=== PATIENT | female | born 1970 | race Caucasian/White ===

== ENCOUNTER 2018-01-08 11:13 | Inpatient (IN) | payer SELFPAY ==
[~2018-01-08] VITALS: Ht 165.1 cm; Wt 111.2 kg
[2018-01-08] MEDS ORDERED: SODIUM CHLORIDE 0.9% 1000ML 1,000 ML IV STA (11:28)
[2018-01-08] MEDS ORDERED: MORPHINE SULFATE 4 MG/ML SYR IV STA (11:28)
[2018-01-08] MEDS ORDERED: ONDANSETRON HCL 4 MG ORAL DISINTEGRATING TAB PO ONE (11:30)
[2018-01-08] MEDS ORDERED: HYDROCHLOROTHIA25 MG PO (11:31)
[2018-01-08] MEDS ORDERED: farxiga PO (11:31)
[2018-01-08] MEDS ORDERED: ATORVASTATIN CA20 MG PO (11:31)
[2018-01-08] MEDS ORDERED: LO LOESTRIN FE1 EACH PO (11:31)
[2018-01-08] MEDS ORDERED: LISINOPRIL10 MG PO (11:31)
[2018-01-08] MEDS ORDERED: METFORMIN HCL500 M2 PO (11:31)
[2018-01-08] MEDS ORDERED: VITAMIN D250000 UNIT PO (11:32)
[2018-01-08 11:53] LABS: BASOPHILS % 0.3 % (0.0-1.0); EOSINOPHILS % 0.3 % (0.0-6.0); HEMATOCRIT 36.7 % (34.2-44.1); HEMOGLOBIN 12.6 g/dL (12.0-16.0); LYMPHOCYTES # (AUTO) 3.3 (1.0-3.2); LYMPHOCYTES % 25.8 % (18.0-39.1); MEAN CORPUSCULAR HEMOGLOBIN 30.7 pg (28-32); MEAN CORPUSCULAR HGB CONC 34.3 g/dL (31-35); MEAN CORPUSCULAR VOLUME 89.5 fL (81-99); MONOCYTES # (AUTO) 0.7 (0.2-0.8); MONOCYTES % 5.5 % (4.4-11.3); NEUTROPHILS # (AUTO) 8.7 (2.1-6.9); NEUTROPHILS % 67.8 % (38.7-80.0); PLATELET COUNT 298 x10e3/uL (140-360); RED CELL DISTRIBUTION WIDTH 12.2 % (11.7-14.4)
[2018-01-08 12:01] LABS: BILIRUBIN,URINE 1+ (NEGATIVE); CLARITY,URINE TURBID (CLEAR); COLOR,URINE BROWN (YELLOW); KETONES,URINE NEGATIVE (NEGATIVE); LEUKOCYTE ESTERASE ,URINE TRACE (NEGATIVE); NITRITE,URINE POSITIVE (NEGATIVE); PROTEIN,URINE DIPSTICK 2+ (NEGATIVE); URINE UROBILINOGEN 0.2 mg/dL (0.2 - 1)
[2018-01-08 12:24] LABS: BACTERIA,URINE RARE /HPF; EPITHELIAL CELLS,URINE RARE /LPF; RBC,URINE 21-50 /HPF (0-5)
[2018-01-08 12:25] LABS: YEAST,URINE MODERATE
[2018-01-08 12:27] LABS: ALANINE AMINOTRANSFERASE 11 IU/L (0-55); ALBUMIN 3.4 g/dL (3.5-5.0); ALBUMIN/GLOBULIN RATIO 1.2 (0.8-2.0); ALKALINE PHOSPHATASE 52 IU/L (40-150); ANION GAP 11.7 mmol/L (8-16); BLOOD UREA NITROGEN 16 mg/dL (7-26); BUN/CREATININE RATIO 21 (6-25); CALCIUM 9.1 mg/dL (8.4-10.2); CARBON DIOXIDE 27 mmol/L (22-29); CHLORIDE 104 mmol/L (98-107); CREATININE, SERUM 0.78 mg/dL (0.57-1.11); EST GLOMERULAR FILTRATION RATE > 60 ML/MIN (60-); GLUCOSE 108 mg/dL (74-118); POTASSIUM 3.7 mmol/L (3.5-5.1); SODIUM 139 mmol/L (136-145)
[2018-01-08] MEDS ORDERED: CEFTRIAXONE SOD 1 GM VIAL IV SCH (13:00)
--- NOTE | 2018-01-08 13:31 | Diagnostic Imaging Report ---
PROCEDURE: CT ABDOMEN AND PELVIS WITHOUT CONTRAST TECHNIQUE: The abdomen and pelvis were scanned utilizing a multidetector helical scanner from the diaphragm to the lesser trochanter after the oral administration of water. No IV contrast was administered per protocol. Coronal and sagittal multiplanar reformations were obtained. COMPARISON: None. INDICATIONS: RIGHT LOW BACK PAIN. HEMATURIA. NAUSEA/VOMITING FINDINGS: ABSENCE OF INTRAVENOUS CONTRAST DECREASES SENSITIVITY FOR DETECTION OF FOCAL LESIONS AND VASCULAR PATHOLOGY. LOWER THORAX: Unremarkable. HEPATOBILIARY: No focal hepatic lesions. No biliary ductal dilatation. Gallbladder is unremarkable. SPLEEN: Mild splenomegaly, measuring 14.9 cm in AP diameter. PANCREAS: No focal masses or ductal dilatation. ADRENALS: No adrenal nodules. KIDNEYS/URETERS: No renal or ureteral calculi, hydronephrosis, or obstruction. Ill-defined 10.3 x 7.2 x 13.3 cm contour abnormality involving the lateral aspect of the mid and inferior kidney, with heterogeneous attenuation. No contour abnormalities in the left kidney. PELVIC ORGANS/BLADDER: Bladder is decompressed, but grossly unremarkable. Uterus is unremarkable. No adnexal masses. PERITONEUM / RETROPERITONEUM: No free air or fluid. LYMPH NODES: No lymphadenopathy. VESSELS: Unremarkable for noncontrast exam. GI TRACT: No bowel dilation or evidence of obstruction. Appendix is well identified and normal in caliber. BONES AND SOFT TISSUES: No aggressive lytic lesions. Fat-containing umbilical hernia. IMPRESSION: 1. Ill-defined contour abnormality with heterogeneous attenuation in the lateral aspect of the mid and inferior kidney, measuring 13.3 cm in greatest diameter, highly suspicious for solid renal mass, likely RCC. Recommend CT abdomen with renal mass protocol (excluding noncontrast phase). 2. No renal, ureteral, or bladder calculi. No hydronephrosis or obstruction. Humphrey Freeman M.D. Dictated by: Humphrey Freeman M.D. on 01/08/2018 at 13:33 Electronically approved by: Humphrey Freeman M.D. on 01/08/2018 at 13:33
[2018-01-08] MEDS ORDERED: MORPHINE SULFATE 2 MG/ML SYR ONE (13:42)
[2018-01-08] MEDS ORDERED: MORPHINE SULFATE 2 MG/ML SYR IV PRN (14:45)
[2018-01-08] MEDS ORDERED: ONDANSETRON HCL 4 MG ORAL DISINTEGRATING TAB PO PRN (14:45)
--- OUTSIDE RECORDS SUMMARY | 2018-01-08 14:57 | XMS REPORT ---
Author Author [facility] Address Unknown Phone Unavailable Care Team Providers Care High School Counselor Name Role Phone MAKENNA HAIRSTON Unavailable Unavailable Problems This patient has no known problems. Allergies, Adverse Reactions, Alerts This patient has no known allergies or adverse reactions. Medications This patient has no known medications. Results Test Description Test Time Test Comments Text Results Atomic Results Result Comments CT ABDOMEN/PELVIS WO [place] [address] Patient Name: BONNIE HOUSTON MR #: [id number] : 1970 Age/Sex: 47/F Req #: [id number] Adm Physician: Ordered by: YOBANI ALFONSO PROCUREMENT CONSULTANT Report #: [id number] Location: ER Room/Bed: Procedure: [id number] CT/CT ABDOMEN/PELVIS WO Exam Date: 01/08/18 Exam Time: 1200 REPORT STATUS: Signed PROCEDURE: CT ABDOMEN AND PELVIS WITHOUT CONTRAST TECHNIQUE: The abdomen and pelvis were scanned utilizing a multidetector helical scanner from the diaphragm to the lesser trochanter after the oral administration of water. No IV contrast was administered per protocol. Coronal and sagittal multiplanar reformations were obtained. COMPARISON: None. INDICATIONS: RIGHT LOW BACK PAIN. HEMATURIA. NAUSEA/VOMITING FINDINGS: ABSENCE OF INTRAVENOUS CONTRAST DECREASES SENSITIVITY FOR DETECTION OF FOCAL LESIONS AND VASCULAR PATHOLOGY. LOWER THORAX: Unremarkable. HEPATOBILIARY: No focal hepatic lesions. No biliary ductal dilatation. Gallbladder is unremarkable. SPLEEN: Mild splenomegaly, measuring 14.9 cm in AP diameter. PANCREAS: No focal masses or ductal dilatation. ADRENALS: No adrenal nodules. KIDNEYS /URETERS: No renal or ureteral calculi, hydronephrosis, or obstruction. Ill -defined 10.3 x 7.2 x 13.3 cm contour abnormality involving the lateral aspect of the mid and inferior kidney, with heterogeneous attenuation. No contour abnormalities in the left kidney. PELVIC ORGANS/BLADDER: Bladder is decompressed, but grossly unremarkable. Uterus is unremarkable. No adnexal masses. PERITONEUM / RETROPERITONEUM: No free air or fluid. LYMPH NODES : No lymphadenopathy. VESSELS: Unremarkable for noncontrast exam. GI TRACT: No bowel dilation or evidence of obstruction. Appendix is well identified and normal in caliber. BONES AND SOFT TISSUES: No aggressive lytic lesions. Fat-containing umbilical hernia. IMPRESSION: 1. Ill-defined contour abnormality with heterogeneous attenuation in the lateral aspect of the mid and inferior kidney, measuring 13.3 cm in greatest diameter, highly suspicious for solid renal mass, likely RCC. Recommend CT abdomen with renal mass protocol (excluding noncontrast phase). 2. No renal , ureteral, or bladder calculi. No hydronephrosis or obstruction. Ashley Freeman M.D. Dictated by: Ashley Freeman M.D. on 01/08/2018 at 13:33 Electronically approved by: Ashley Freeman M.D. on 2017 at 13:33 Dictated By: ASHLEY FREEMAN MD 1333 Transcribed By: HUNTER on 1333 COPY TO: YOBANI ALFONSO NP
--- NOTE | 2018-01-08 15:11 | Diagnostic Imaging Report ---
PROCEDURE: CT ABDOMEN AND PELVIS WITH CONTRAST TECHNIQUE: The abdomen and pelvis were scanned utilizing a multidetector helical scanner from the diaphragm to the lesser trochanter after the IV administration of 100 cc of Isovue 370 and the oral administration of water. Coronal and sagittal multiplanar reformations were obtained. COMPARISON: Patients [facility], CT, CT ABDOMEN/PELVIS , 01/08/2018, 12:14. INDICATIONS: RIGHT RENAL MASS FINDINGS: LOWER THORAX: Lung bases are clear. No pulmonary nodules. HEPATOBILIARY: No focal hepatic lesions. No biliary ductal dilatation. The gallbladder is unremarkable. SPLEEN: Mild splenomegaly measuring 14.9 cm in AP diameter.. PANCREAS: No focal masses or ductal dilatation. ADRENALS: No adrenal nodules. KIDNEYS/URETERS: Previously described right renal contour abnormality corresponds to an 11.4 x 9.3 x 12.7 cm heterogeneously enhancing solid right renal mass with central nonenhancing areas of necrosis, arising from the lateral mid and inferior right kidney. The superior aspect of the lesion abuts the posterior right hepatic lobe (series 2, image 129), without definite evidence of invasion. No other renal masses. No hydronephrosis or obstruction. Multiple somewhat linear filling defects are noted in the right renal pelvis extending to the UPJ (series 5, images 59-70 and coronal delayed images 73-79), which show no enhancement. No filling defects are noted in the left renal collecting system or ureter. PELVIC ORGANS/BLADDER: Bladder is unremarkable. PERITONEUM / RETROPERITONEUM: No free air or fluid. LYMPH NODES: No lymphadenopathy. VESSELS: Celiac trunk, superior and inferior mesenteric, and bilateral renal arteries are patent. Portal, superior mesenteric, and splenic arteries are patent. IVC and renal veins are patent, without filling defects. GI TRACT: No bowel dilation or evidence of obstruction. BONES AND SOFT TISSUES: No aggressive lytic lesions. Fat-containing umbilical hernia. IMPRESSION: 1. Heterogeneously enhancing solid renal mass measuring 12.7 cm in greatest diameter corresponding to the contour abnormality seen on prior CT, consistent with renal cell carcinoma (likely clear cell subtype). No definite evidence of extension outside Gerota's fascia, vascular invasion, adenopathy, or distant metastases in the lung bases, abdomen or pelvis. 2. Multiple somewhat linear filling defects in the right renal pelvis extending to the UPJ likely represent blood clots. No enhancement to suggest tumor extension. Humphrey Freeman M.D. Dictated by: Humphrey Freeman M.D. on 01/08/2018 at 15:14 Electronically approved by: Humphrey Freeman M.D. on 01/08/2018 at 15:14
[2018-01-08] MEDS ORDERED: IOPAMIDOL 370 MG/ML 200 ML INFUS..BTL INJ ONE (16:01)
[2018-01-08] MEDS ORDERED: SODIUM CHLORIDE 0.9% 50ML 50 ML ONE (16:01)
[2018-01-08] MEDS: SODIUM CHLORIDE 0.9% 1000ML 1,000 ML IV SCH (16:15)
[2018-01-08] MEDS ORDERED: DEXTROSE 50% SYRINGE 50 ML IV PRN (17:00)
[2018-01-08] MEDS ORDERED: ACETAMINOPHEN 325 MG TAB PO PRN (17:00)
[2018-01-08] MEDS ORDERED: ACETAMINOPHEN/CODEINE 300MG - 30MG TAB PO PRN (17:00)
[2018-01-08] MEDS ORDERED: ONDANSETRON HCL INJ 2 MG/ML VIAL IV PRN (17:00)
[2018-01-08] MEDS ORDERED: HYDRALAZINE HCL 20 MG/ML VIAL IV PRN (17:00)
[2018-01-08] MEDS ORDERED: HYDROMORPHONE 1MG/1ML INJ IV STA (17:23)
[2018-01-08] MEDS ORDERED: HYDROMORPHONE 2MG/ML INJ IV NR (17:30)
[2018-01-08] MEDS: PHENAZOPYRIDINE HCL 100 MG TAB PO SCH (17:52)
[2018-01-08] MEDS: FLUCONAZOLE 200 MG/100 ML 100 ML IV SCH (18:20)
[2018-01-08 20:05] VITALS: BP 142/68
[2018-01-08] MEDS: HYDROMORPHONE 2MG/ML INJ IV PRN (21:29)
[2018-01-08] MEDS: ATORVASTATIN 20 MG TAB PO SCH (21:44)
[2018-01-08] MEDS: INSULIN LISPRO 100 UNIT/1 ML 3ML VIAL SQ SCH (21:45)
[2018-01-09] VITALS (10 sets, daily range): BP systolic 93–142; BP diastolic 53–68
[2018-01-09] MEDS: HYDROMORPHONE 2MG/ML INJ IV PRN ×4 (01:29→20:51)
[2018-01-09] MEDS: SODIUM CHLORIDE 0.9% 1000ML 1,000 ML IV SCH ×2 (03:53→21:21)
[2018-01-09 06:43] LABS: BASOPHILS % 0.2 % (0.0-1.0); EOSINOPHILS # (AUTO) 0.1 (0.0-0.4); EOSINOPHILS % 0.4 % (0.0-6.0); HEMATOCRIT 36.3 % (34.2-44.1); HEMOGLOBIN 12.1 g/dL (12.0-16.0); LYMPHOCYTES # (AUTO) 1.9 (1.0-3.2); LYMPHOCYTES % 15.5 % (18.0-39.1); MEAN CORPUSCULAR HGB CONC 33.3 g/dL (31-35); MEAN CORPUSCULAR VOLUME 90.1 fL (81-99); MONOCYTES # (AUTO) 0.9 (0.2-0.8); MONOCYTES % 7.4 % (4.4-11.3); NEUTROPHILS # (AUTO) 9.4 (2.1-6.9); NEUTROPHILS % 76.1 % (38.7-80.0); PLATELET COUNT 260 x10e3/uL (140-360); RED BLOOD COUNT 4.03 x10e6/uL (3.6-5.1); RED CELL DISTRIBUTION WIDTH 12.3 % (11.7-14.4)
[2018-01-09 07:09] LABS: B-TYPE NATRIURETIC PEPTIDE2 278.9 pg/mL (0-100)
[2018-01-09 07:16] LABS: CHOL/HDL RATIO 4.3 (3.0-3.6); MAGNESIUM 1.7 MG/DL (1.3-2.1)
[2018-01-09 07:31] LABS: ALANINE AMINOTRANSFERASE 10 IU/L (0-55); ALBUMIN 3.2 g/dL (3.5-5.0); ALBUMIN/GLOBULIN RATIO 1.2 (0.8-2.0); ALKALINE PHOSPHATASE 49 IU/L (40-150); ANION GAP 11.4 mmol/L (8-16); BLOOD UREA NITROGEN 11 mg/dL (7-26); BUN/CREATININE RATIO 12 (6-25); CALCIUM 8.7 mg/dL (8.4-10.2); CARBON DIOXIDE 26 mmol/L (22-29); CHLORIDE 102 mmol/L (98-107); CREATININE, SERUM 0.94 mg/dL (0.57-1.11); EST GLOMERULAR FILTRATION RATE > 60 ML/MIN (60-); GLUCOSE 125 mg/dL (74-118); POTASSIUM 4.4 mmol/L (3.5-5.1); SODIUM 135 mmol/L (136-145)
[2018-01-09 07:40] LABS: FREE T4 (FREE THYROXINE) 0.85 ng/dL (0.9-1.8); THYROID STIMULATING HORMONE 6.116 uIU/mL (0.350-4.940)
[2018-01-09] MEDS ORDERED: HYDROCODONE/APAP 5MG-325MG TAB PO PRN (08:30)
[2018-01-09] MEDS: FAMOTIDINE 20 MG TAB PO SCH ×2 (08:59→17:13)
[2018-01-09] MEDS: LEVOTHYROXINE SODIUM 25 MCG TABLET PO SCH (08:59)
[2018-01-09] MEDS: LISINOPRIL 10 MG TAB PO SCH (08:59)
[2018-01-09] MEDS: HYDROCHLOROTHIAZIDE 25 MG TAB PO SCH (08:59)
[2018-01-09] MEDS: PHENAZOPYRIDINE HCL 100 MG TAB PO SCH ×3 (08:59→17:14)
[2018-01-09] MEDS: INSULIN LISPRO 100 UNIT/1 ML 3ML VIAL SQ SCH ×4 (09:00→20:51)
[2018-01-09] MEDS: CEFTRIAXONE SOD 1 GM VIAL IV SCH (10:34)
[2018-01-09] MEDS: FLUCONAZOLE 200 MG/100 ML 100 ML IV SCH (17:13)
--- NOTE | 2018-01-09 17:55 | Cardiology Report ---
DATE OF STUDY: January 09, 2018 ECHOCARDIOGRAM M-MODE: Normal chamber sizes. Left ventricular hypertrophy. Normal contractility. Normal mitral aortic valves. No pericardial effusion. SECTOR SCAN: Normal chamber sizes. Left ventricular hypertrophy. Normal contractility. Normal mitral, aortic and tricuspid valves. No pericardial effusion. CARDIAC DOPPLER STUDY WITH COLOR: Trace mitral tricuspid pulmonic regurgitation. CONCLUSIONS: 1. Mild left ventricular hypertrophy with ejection fraction of approximately 65%. 2. Trace mitral tricuspid and pulmonic regurgitation. 3. No evidence ASD or VSD. 4. No evidence intracardiac thrombi or masses. Job#: [id number] cc:BRANDEN CARRILLO MD
[2018-01-09] MEDS: ATORVASTATIN 20 MG TAB PO SCH (20:51)
[2018-01-10] VITALS: BP 111/60
[2018-01-10 04:00] VITALS: BP 116/65
[2018-01-10] MEDS: LEVOTHYROXINE SODIUM 25 MCG TABLET PO SCH (05:42)
[2018-01-10 06:37] LABS: HEMATOCRIT 36.5 % (34.2-44.1); HEMOGLOBIN 12.5 g/dL (12.0-16.0); MEAN CORPUSCULAR HEMOGLOBIN 30.6 pg (28-32); MEAN CORPUSCULAR HGB CONC 34.2 g/dL (31-35); MEAN CORPUSCULAR VOLUME 89.2 fL (81-99); RED BLOOD COUNT 4.09 x10e6/uL (3.6-5.1)
[2018-01-10 06:38] LABS: BASOPHILS % 0.2 % (0.0-1.0); EOSINOPHILS % 1.6 % (0.0-6.0); LYMPHOCYTES # (AUTO) 3.3 (1.0-3.2); MONOCYTES # (AUTO) 0.6 (0.2-0.8); MONOCYTES % 6.7 % (4.4-11.3); NEUTROPHILS # (AUTO) 4.3 (2.1-6.9); NEUTROPHILS % 51.1 % (38.7-80.0); PLATELET COUNT 276 x10e3/uL (140-360); RED CELL DISTRIBUTION WIDTH 12.4 % (11.7-14.4)
[2018-01-10 06:39] LABS: EOSINOPHILS # (AUTO) 0.1 (0.0-0.4)
[2018-01-10 06:46] LABS: ANION GAP 12.1 mmol/L (8-16); BLOOD UREA NITROGEN 9 mg/dL (7-26); BUN/CREATININE RATIO 12 (6-25); CALCIUM 8.7 mg/dL (8.4-10.2); CARBON DIOXIDE 25 mmol/L (22-29); CHLORIDE 104 mmol/L (98-107); CREATININE, SERUM 0.73 mg/dL (0.57-1.11); EST GLOMERULAR FILTRATION RATE > 60 ML/MIN (60-); GLUCOSE 108 mg/dL (74-118); MAGNESIUM 1.9 MG/DL (1.3-2.1); POTASSIUM 3.1 mmol/L (3.5-5.1); SODIUM 138 mmol/L (136-145)
[2018-01-10 07:15] VITALS: BP 101/51
[2018-01-10] MEDS: INSULIN LISPRO 100 UNIT/1 ML 3ML VIAL SQ SCH (07:30)
[2018-01-10] MEDS ORDERED: POTASSIUM CHLORIDE 20 MEQ TAB CR PO STA (07:48)
[2018-01-10] MEDS ORDERED: CEFTIN PO (08:02)
[2018-01-10] MEDS ORDERED: LEVOTHYROXINE25 MCG PO (08:02)
[2018-01-10 08:03] VITALS: BP 101/51
[2018-01-10] MEDS: FAMOTIDINE 20 MG TAB PO SCH (08:48)
[2018-01-10] MEDS: HYDROCHLOROTHIAZIDE 25 MG TAB PO SCH (08:49)
[2018-01-10] MEDS: PHENAZOPYRIDINE HCL 100 MG TAB PO SCH (08:49)
[2018-01-10] MEDS: CEFTRIAXONE SOD 1 GM VIAL IV SCH (08:49)
[2018-01-10] MEDS: LISINOPRIL 10 MG TAB PO SCH (08:49)
--- NOTE | 2018-01-10 09:55 | Consultation ---
DATE OF CONSULTATION: January 10, 2018 ATTENDING DOCTOR: Dr. Tellez Thank you, Dr. Tellez for this consultation. HISTORY: She is very pleasant 47-year-old female with past medical history of hypertension, hyperlipidemia, and diabetes, currently in hospital with worsening right-sided flank pain. She had intermittent hematuria. She came to the hospital for further management. Her workup shows heterogeneous enhancing solid renal mass 12.7 cm in greater diameter. Likely renal cell carcinoma. Patient currently on medication, clinical condition is improving. PAST MEDICAL HISTORY: Hypertension, hyperlipidemia, diabetes. ALLERGIES: NKDA. MEDICATIONS: List reviewed. SOCIAL HISTORY: No current smoking, alcohol, or drugs. REVIEW OF SYSTEMS: Twelve-point review as per HPI. PHYSICAL EXAMINATION: GENERAL: Alert, awake, communicative. HEENT: Normocephalic, atraumatic. Sclerae pink. Conjunctivae clear. NECK: Supple. CHEST: Clear to auscultation. CARDIOVASCULAR: Regular rate and rhythm. ABDOMEN: Tender in the right upper flank area. EXTREMITIES: No clubbing, cyanosis, edema. GENERATION ENGINEER: Intact. LABS AND IMAGING: Reviewed. ASSESSMENT AND PLAN: Patient with history of multiple medical conditions. I am currently following for: Heterogeneous enhancing solid renal right-sided mass. Patient will need urologist. Clinical condition is stable. RECOMMENDATION: Outpatient management for further care. Patient will need nephrectomy, also CT chest or PET scan for staging. Continue pain medication. Will follow patient closely. Thank you. Job#: [id number]
[2018-01-10 12:04] VITALS: BP 119/68
--- NOTE | 2018-01-10 15:47 | Discharge Summary ---
ADMISSION DIAGNOSES 1. Right renal mass. 2. Urinary tract infection with candiduria. 3. Hyponatremia. 4. Hypothyroidism. 5. Type 2 diabetes. 6. Hypertension. DISCHARGE DIAGNOSES 1. Right renal mass. 2. Urinary tract infection with candiduria. 3. Hyponatremia. 4. Hypothyroidism. 5. Type 2 diabetes. 6. Hypertension. HISTORY: Patient has a history of hyperlipidemia, hypertension, type 2 diabetes, and a surgical history of right shoulder surgery. HOSPITAL COURSE: A 47-year-old complains of right lower pain described as sharp and constant with associated nausea and emesis that began two nights ago. Later in the first night the patient noticed urinary retention. She took [facility] prescribed for her recent surgery and went to sleep. When she woke up the next morning, the pain continued but she was able to pee and noticed hematuria. Patient denies fever and dysuria. Upon admission patient had CT of the abdomen which showed a solid renal mass measuring 12.7 cm in greatest diameter corresponding to a contour abnormality seen on prior CT, consistent with renal cell carcinoma. No definite evidence of extension. Multiple somewhat linear filling defects in the right renal pelvis extending to the UPJ likely represent blood clots. No enhancement to suggest tumor extension. Hematology was consulted. Patient was started on Rocephin and fluconazole for the urine culture with a UA which showed bacteria and yeast. The urine culture was contaminated. Patient continued on Ceftin at discharge because Rocephin brought down the patient's white count and she remains afebrile. Patient's TSH was elevated and T4 was decreased. She was started on levothyroxine 25 mcg. She was told to follow up with her primary care as to whether that is a sufficient dose for her. She was continued on home meds for hypertension, type 2 diabetes and hyperlipidemia. After Hematology saw the patient, he said that she needs to be discharged and [facility] because that mass needs to be taken out and she needs to be somewhere that can handle such an intricate surgery. Patient and daughter understand the discharge plan and agree. Dictated by: Kallie Sands NP BRANDEN CARRILLO MD Job#: [id number] EV
== END 2018-01-10 11:22 | disposition home or self-care (01) | DRG 687 ==
LOC: ER 11:13 → ERHOLD 14:52 → MED/SURG 19:48
PROVIDERS: ADMIT Internal Medicine; ATTEND Internal Medicine
DX: C64.9 Malignant neoplasm of unspecified kidney, except renal pelvis (principal); B37.49 Other urogenital candidiasis; I10 Essential (primary) hypertension; E11.9 Type 2 diabetes mellitus without complications; E78.5 Hyperlipidemia, unspecified; E87.6 Hypokalemia; E03.9 Hypothyroidism, unspecified; Z79.52 Long term (current) use of systemic steroids; Z79.4 Long term (current) use of insulin
CPT/HCPCS: 36415; 74176; 74177; 80048; 80053; 80061; 81001; 81025; 82948; 83036; 83735; 83880; 84439; 84443; 85025; 87086; 93306; 99284; J0696; J1450; J2270; J2405; J7030; Q9967

== ENCOUNTER 2018-08-11 08:39 | Emergency (ER) | payer BC ==
[~2018-08-11] VITALS: Ht 165.1 cm; Wt 111.1 kg
[~2018-08-11 08:39] MED LIST: ATORVASTATIN CA20 MG PO; CEFTIN PO; HYDROCHLOROTHIA25 MG PO; LEVOTHYROXINE25 MCG PO; LISINOPRIL10 MG PO; LO LOESTRIN FE1 EACH PO; METFORMIN HCL500 M2 PO; VITAMIN D250000 UNIT PO; farxiga PO
--- OUTSIDE RECORDS SUMMARY | 2018-08-11 08:42 | XMS REPORT | Clinical Summary ---
Author Author [facility] Address Unknown Phone Unavailable Care Team Providers Care Foxing Closer Name Role Phone PCP Unavailable Allergies Not on File Medications Not on file Active Problems Not on file Encounters Care Team Description Date Type Specialty 05/09/2018 Clinical Corporate Wellness Support after 08/10/2017 Immunizations Name Dates Previously Given Next Due FLUCELVAX QUAD PF (0.5mL 05/09/2018 syringe) Social History Date Tobacco Use Types Packs/Day Years Used Never Assessed Sex Assigned at Date Recorded Not on file Industry Job Start Date Occupation Not on file Not on file Not on file Travel End Travel History Travel Start No recent travel history available. Last Filed Vital Signs Not on file Plan of Treatment Health Maintenance Due Date Last Done Comments CERVICAL CANCER SCREENING 1989 INFLUENZA VACCINE Completed 05/09/2018 Results Not on fileafter 08/10/2017 Insurance Payer Benefit Subscriber ID Type Phone Address Plan / Group BCBS BCBS xxxxxxxxxxxx PPO CHOICE PPO/JANELLE [employer] PPO Advance Directives Patient has advance care planning documents on file. For more information, radha stevenson contact: Jose Petty [address] [place] [address]
--- OUTSIDE RECORDS SUMMARY | 2018-08-11 08:42 | XMS REPORT | Clinical Summary ---
Author Author SHASHI Anapsis DropThought [facility] HospitalEgnyte Warner RobinsSnowball FinanceCascade Valley Hospital Address Unknown Phone Unavailable Care Team Providers Care Waste Machine Offbearer Name Role Phone [facility] PCP Allergies No Known Allergies Medications End Date Status Medication Sig Dispensed Refills Start Date Active atorvastatin (LIPITOR) 20 Take 20 mg by 0 MG tablet mouth daily. Active dapagliflozin (FARXIGA) 5 Take 5 mg by 0 mg tablet mouth daily. Active hydroCHLOROthiazide Take 12.5 mg 0 (MICROZIDE) 12.5 mg by mouth capsule daily. Active lisinopril Take 10 mg by 0 (PRINIVIL,ZESTRIL) 10 MG mouth daily. tablet Active metFORMIN (GLUCOPHAGE) Take 1,000 mg 0 1000 MG tablet by mouth 2 (two) times daily with breakfast and dinner. Active NORETHINDRONE-ETHINYL Take 1 tablet 0 ESTRAD (NORETHIN-ETH by mouth. ESTRAD BIPHASIC ORAL) Active levothyroxine (SYNTHROID, Take 25 mcg 0 LEVOTHROID) 25 MCG tablet by mouth Every morning on an empty stomach. Active cefUROXime (CEFTIN) 500 Take 500 mg 0 MG tablet by mouth 2 (two) times daily. 01/26/2018 acetaminophen-codeine Take 1 tablet 30 tablet 0 (TYLENOL-CODEINE #3) by mouth 8 300-30 mg per tablet every 4 (four) hours as needed for up to 10 days. Max Daily Amount: 6 tablets 01/26/2018 docusate sodium (COLACE) Take 1 20 capsule 0 100 MG capsule capsule (100 8 mg total) by mouth 2 (two) times daily for 10 days. Active Problems Problem Noted Date Renal mass 01/15/2018 Right flank pain 01/10/2018 Encounters Care Team Description Date Type Specialty Katcher, Gaby Kathia, MD 01/14/2018 Anesthesia Event Yoseph Johnston MD ROBOTIC LAPAROSCOPY,NEPHRECTOMY 01/14/2018 Surgery 01/12/2018 Orders Only General Internal Medicine Nelson Smith MD Brann, MD Josh Gutierrez, Destiny Bae MD Right flank pain (Primary Dx); Right renal mass; Essential hypertension; Diabetes mellitus type 2, noninsulin dependent (HCC); Other specified hypothyroidism; Renal mass 01/10/2018 [facility] General Internal Medicine - Encounter 01/17/2018 after 08/10/2017 Family History Medical History Relation Name Comments Heart disease Father hardening of the artery disease Cancer Maternal Aunt mesothelioma Cancer Maternal Colon Grandmother Heart disease Paternal Heart attack Grandfather Heart disease Paternal heart attack Uncle Heart disease Paternal heart attack Uncle Relation Name Status Comments Father Maternal Aunt Maternal Grandmother Paternal Grandfather Paternal Uncle Paternal Uncle Social History Date Tobacco Use Types Packs/Day Years Used Never Smoker Smokeless Tobacco: Never Used Alcohol Use Drinks/Week oz/Week Comments Yes 1 Shots of 0.6 OCCASSONIALLY liquor Sex Assigned at Date Recorded Not on file Industry Job Start Date Occupation Not on file Not on file Not on file Travel End Travel History Travel Start No recent travel history available. Last Filed Vital Signs Time Taken Vital Sign Reading 01/17/2018 7:24 AM CDT Blood Pressure 117/68 01/17/2018 7:24 AM CDT Pulse 85 01/17/2018 7:24 AM CDT Temperature 36.5 C (97.7 F) 01/17/2018 7:24 AM CDT Respiratory Rate 18 01/17/2018 7:24 AM CDT Oxygen Saturation 96% - Inhaled Oxygen - Concentration 01/14/2018 9:45 PM CDT Weight 109.3 kg (241 lb) 01/14/2018 9:45 PM CDT Height 165.1 cm (5' 5") 01/14/2018 9:45 PM CDT Body Mass Index 40.1 Plan of Treatment Not on file Procedures Comments Procedure Name Priority Date/Time Associated Diagnosis POCT-GLUCOSE METER Routine 01/17/2018 9:22 AM CDT HEMOGLOBIN AND HEMATOCRIT Routine 01/17/2018 5:35 AM CDT BASIC METABOLIC PANEL (7) Routine 01/17/2018 5:35 AM CDT POCT-GLUCOSE METER Routine 01/16/2018 9:54 PM CDT POCT-GLUCOSE METER Routine 01/16/2018 12:52 PM CDT POCT-GLUCOSE METER Routine 01/16/2018 8:14 AM CDT HEMOGLOBIN AND HEMATOCRIT Routine 01/16/2018 4:40 AM CDT BASIC METABOLIC PANEL (7) Routine 01/16/2018 4:40 AM CDT POCT-GLUCOSE METER Routine 01/15/2018 9:05 PM CDT POCT-GLUCOSE METER Routine 01/15/2018 5:15 PM CDT POCT-GLUCOSE METER Routine 01/15/2018 12:20 PM CDT POCT-GLUCOSE METER Routine 01/15/2018 7:52 AM CDT HEMOGLOBIN AND HEMATOCRIT Routine 01/15/2018 4:21 AM CDT BASIC METABOLIC PANEL (7) Routine 01/15/2018 4:21 AM CDT POCT-GLUCOSE METER Routine 01/14/2018 9:49 PM CDT HEMOGLOBIN AND HEMATOCRIT Routine 01/14/2018 7:39 PM CDT BASIC METABOLIC PANEL (7) Routine 01/14/2018 7:39 PM CDT TISSUE EXAM AP Routine 01/14/2018 4:46 PM CDT ECHOCARDIOGRAM REPORT - 01/14/2018 SCAN 1:20 PM CDT POCT , URINE Routine 01/14/2018 1:20 PM CDT PROCEDURE W/ DAVINCI 01/14/2018 Renal mass, right 12:30 PM CDT Special Needs (DAVINCI XI NOT REQUESTED) ROBOTIC 01/14/2018 Renal mass, right LAPAROSCOPY,NEPHRECTOMY 12:30 PM CDT Special Needs (DAVINCI XI NOT REQUESTED) 2D ECHO W/ DOPPLER STAT 01/14/2018 (CW/PW/COLOR) 11:06 AM CDT POCT-GLUCOSE METER Routine 01/14/2018 7:36 AM CDT POCT-GLUCOSE METER Routine 01/13/2018 10:22 PM CDT POCT-GLUCOSE METER Routine 01/13/2018 5:20 PM CDT POCT-GLUCOSE METER Routine 01/13/2018 11:01 AM CDT POCT-GLUCOSE METER Routine 01/13/2018 7:18 AM CDT CBC W/PLT COUNT & AUTO Routine 01/13/2018 DIFFERENTIAL 3:29 AM CDT CBC W/PLT COUNT & AUTO Routine 01/13/2018 DIFFERENTIAL 3:29 AM CDT BASIC METABOLIC PANEL (7) Routine 01/13/2018 3:29 AM CDT POCT-GLUCOSE METER Routine 01/12/2018 8:49 PM CDT TRANSFUSION SERVICE 01/12/2018 REPORT - SCAN 5:50 PM CDT POCT-GLUCOSE METER Routine 01/12/2018 3:52 PM CDT POCT-GLUCOSE METER Routine 01/12/2018 10:[address] CHEST WITH IV CONTRAST Routine 01/12/2018 10:55 AM CDT XR CHEST 2 VIEWS Routine 01/12/2018 8:07 AM CDT POCT-GLUCOSE METER Routine 01/12/2018 7:39 AM CDT ECG 12-LEAD Routine 01/12/2018 6:27 AM CDT ECG 12-LEAD Routine 01/12/2018 6:27 AM CDT Procedure Note - Interface, External Ris In - 01/12/2018 9:33 PM CDT Ventricula r Rate 76 BPM Atrial Rate 76 BPM P-R Interval 152 ms QRS Duration 86 ms Q-T Interval 390 ms QTC Calculatio n(Bazett) 438 ms P [place] 28 degrees R [place] 31 degrees T [place] 34 degrees Normal sinus rhythm Normal ECG When compared with ECG of 18:09, No significan t change was found CBC W/PLT COUNT & AUTO Routine 01/12/2018 DIFFERENTIAL 5:43 AM CDT PROTHROMBIN TIME/INR Routine 01/12/2018 5:43 AM CDT HEPATIC FUNCTION PANEL Routine 01/12/2018 5:43 AM CDT TSH/FREE T4 IF INDICATED Routine 01/12/2018 5:43 AM CDT LIPID PANEL Routine 01/12/2018 5:43 AM CDT HEMOGLOBIN A1C Routine 01/12/2018 5:43 AM CDT CBC W/PLT COUNT & AUTO Routine 01/12/2018 DIFFERENTIAL 5:43 AM CDT BASIC METABOLIC PANEL (7) Routine 01/12/2018 5:43 AM CDT POCT-GLUCOSE METER Routine 01/11/2018 10:01 PM CDT PREPARE LEUKO-REDUCED RBC Routine 01/11/2018 7:06 PM CDT ECG 12-LEAD Routine 01/11/2018 6:09 PM CDT URINE CULTURE Routine 01/11/2018 6:05 PM CDT POCT-GLUCOSE METER Routine 01/11/2018 5:57 PM CDT TYPE AND SCREEN, Routine 01/11/2018 AUTOMATED 5:51 PM CDT PROTHROMBIN TIME/INR Routine 01/11/2018 5:51 PM CDT APTT Routine 01/11/2018 5:51 PM CDT POCT-GLUCOSE METER Routine 01/11/2018 11:09 AM CDT CBC W/PLT COUNT & AUTO Routine 01/11/2018 DIFFERENTIAL 4:51 AM CDT CBC W/PLT COUNT & AUTO Routine 01/11/2018 DIFFERENTIAL 4:51 AM CDT BASIC METABOLIC PANEL (7) Routine 01/11/2018 4:51 AM CDT MR ABDOMEN WITH/WITHOUT STAT 01/11/2018 IV CONTRAST 12:21 AM CDT URINALYSIS W/ MICROSCOPIC Routine 01/10/2018 10:20 PM CDT CBC W/PLT COUNT & AUTO STAT 01/10/2018 DIFFERENTIAL 4:43 PM CDT BASIC METABOLIC PANEL (7) STAT 01/10/2018 4:43 PM CDT CBC W/PLT COUNT & AUTO STAT 01/10/2018 DIFFERENTIAL 4:43 PM CDT after 08/10/2017 Results * POC-Glucose meter (01/17/2018 9:22 AM CDT) Only the most recent of 21 results within the time period is included. POC-Glucose Meter 127 (H)Comment: TESTED AT 70 - 110 mg/dL [facility] [address] [facility] [id number] Specimen Blood Performing Organization Address City/State/Zipcode Phone Number [address] [address] [facility] * Hemoglobin and hematocrit (01/17/2018 5:35 AM CDT) Only the most recent of 4 results within the time period is included. Hemoglobin 12.0 11.2 - 15.7 GM/DL [facility] Hematocrit 37.7 34.1 - 44.9 % [facility] Specimen Blood - Arm, Left Performing Organization Address City/[facility]/Zipcode Phone Number [facility] [address] [place] [address] [facility] * Basic Metabolic Panel (01/17/2018 5:35 AM CDT) Only the most recent of 8 results within the time period is included. Sodium 136 136 - 145 meq/L [facility] Potassium 3.4 (L) 3.5 - 5.1 meq/L [facility] Chloride 102 98 - 107 meq/L [facility] CO2 24 22 - 29 meq/L [facility] BUN 6 (L) 7 - 21 mg/dL [facility] Creatinine 0.79 0.57 - 1.25 mg/dL [facility] Glucose 117 (H) 70 - 105 mg/dL [facility] Calcium 9.1 8.4 - 10.2 mg/dL [facility] EGFR 77Comment: ESTIMATED GFR IS mL/min/1.73 sq m [facility] NOT ACCURATE CREATININE [facility] CLEARANCE IN PREDICTING GLOMERULAR FILTRATION RATE. ESTIMATED GFR IS NOT APPLICABLE FOR DIALYSIS PATIENTS. Specimen Blood - Arm, Left Performing Organization Address [facility] Facility[facility] Phone Number [facility] [address] [place] [address] [facility] * Tissue Exam (01/14/2018 4:46 PM CDT) Case Report Surgical Pathology [facility] Report [facility] Case: [id number] Authorizing Provider:Yoseph Johnston MDCollected: 01/14/2018 1646 Ordering Location: [facility] PERIOPERATIVE Received: 01/15/2018 0810 SERVICES Pathologist: Michaela Powell MD Specimens: A) - Lymph Node, Para caval lymph nodes B) - Kidney, Right, Right kidney and adrenal gland DIAGNOSIS A. PARACAVAL LYMPH NODES, [facility] DISSECTION: [facility] - AT-LEAST SIX BENIGN LYMPH NODES (0/6) - NEGATIVE FOR MALIGNANCY B. 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 - TUMOR MEASURES 11.5 CM IN GREATEST DIMENSION -TUMOR NECROSIS IS LESS THAN 5% - THREE BENIGN LYMPH NODES (0/3) - NO TUMOR IN PERIRENAL FAT AND RENAL SINUS FAT - LYMPHO-VASCULAR INVASION, INDETERMINATE - NO SARCOMATOID OR RHABDOID FEATURES ARE SEEN - RENAL ARTERY, VEIN AND URETER AT THE MARGIN ARE FREE OF TUMOR - ADRENAL GLAND WITH NO PATHOLOGIC ALTERATION - SEE SYNOPTIC REPORT Signing Pathologist Direct Phone Line: [phone] SYNOPTIC REPORT KIDNEY: Nephrectomy(Kidney [facility] Res - All Specimens) [facility] SPECIMEN Procedure:Radical nephrectomy Specimen Laterality:Right TUMOR Tumor Site:This is a large tumor involving 90% of the kidney Histologic Type:Clear cell renal cell carcinoma Histologic Grade (WHO / ISUP Grade):G2: Nucleoli conspicuous and eosinophilic at 400x magnification, visible but not prominent at 100x magnification Tumor Size:Greatest dimension in Centimeters (cm): 11.5 Centimeters (cm) Additional Dimension in Centimeters (cm):9 Centimeters (cm) Additional Dimension in Centimeters (cm):2 Centimeters (cm) Tumor Focality:Unifocal Tumor Extent: Tumor Extension:Tumor limited to kidney Accessory Findings: Sarcomatoid Features:Not identified Rhabdoid Features:Not identified Tumor Necrosis:Present Percentage of Necrosis:3 % Lymphovascular Invasion:Cannot be determined: suspicious for vascular invasion but multiple levels didnot confirm MARGINS Margins:Uninvolved by invasive carcinoma LYMPH NODES Number of Lymph Nodes Involved:0 Site(s):Hilar Site(s):Paracaval Number of Lymph Nodes Examined:At least: 9 PATHOLOGIC STAGE CLASSIFICATION (pTNM, AJCC 8th Edition) Primary Tumor (pT):pT2b Regional Lymph Nodes (pN):pN0 CPT Code(s) 07170 X 2 [facility] CLINICAL HISTORY Right renal mass [facility] SPECIMEN SOURCE A. paracaval lymph nodes. B. [facility] Right kidney and adrenal gland [facility] GROSS DESCRIPTION Specimen is received in two [facility] containers of formalin both [facility] labeled with the patient's information. Specimen A: Labeled "paracaval lymph nodes" consists of adipose tissue measuring 3 x 1 x 0.8 cm yielding no distinct lymph node tissue. The adipose tissue is entirely submitted in A1 and A2. Specimen B: Labeled "right kidney and adrenal gland" consists of a 1,066 gm right radical nephrectomy measuring 24 x 11 x 8 cm, ureter measuring 9 cm in length x 0.5 cm in diameter, and kidney without pericolonic fat measuring 13 x 8 x 4 cm. The adrenal gland measures 5.3 x 2 x 1 cm. The adrenal gland is grossly unremarkable. The kidney is bivalved showing a well-encapsulated, blake-yellow, hemorrhagic and cystic mass encompassing 90% of the kidney measuring 11.5 x 9 x 2 cm. The mass abuts the pelvis but does not grossly infiltrate into it. The renal sinus grossly appears to be pushed to inside but is not grossly involve with tumor. The remainder of the kidney parenchyma is red-brown and unremarkable with a normal corticomedullary junction. The perirenal fat is sectioned yielding one possible hilar lymph node measuring 0.8 cm. Section code: B1, hilar vessels at margin en face; B2, ureteral margin; B3, B4, adrenal gland; B5, one possible lymph node bisected; B6, Gerota's fascia perpendicular section; B7, B8, tumor and pelvis; B9, B10, tumor with renal sinus; B11, tumor and capsule; B12, random section of tumor and kidney parenchyma; B13, viable kidney parenchyma. CG/ew MICROSCOPIC DESCRIPTION PERFORMED [facility] Specimen Tissue - Lymph Node Performing Organization Address City/State/Zipcode Phone Number [facility] [address] [place] [address] [facility]ENTER * ECHOCARDIOGRAM REPORT - SCAN (01/14/2018 1:20 PM CDT) Narrative Performed At * POCT , urine (01/14/2018 1:20 PM CDT) Test Urine, POC Negative Control line present?, Yes POC Background clear?, POC Yes UPT Cassette Lot #, POC [id number] UPT Cassette Expiration Date, POC * 2D Echo W/Doppler(CW/PW/Color) (01/14/2018 11:06 AM CDT) Ejection Fraction [facility] Narrative Performed At Transthoracic Echocardiography Report (TTE) [facility] Demographics [facility] Patient Name TAINA HOUSTON Date of Study 01/14/2018 SHELLI [id number] Female Visit Number [id number] Room Number 2047 Number Date of Birth1970Referring Physician Josh Bae Age47 year(s)Information Clerk Brokerage Gertrude Rothman, [facility] AnalystAlex Physician BART Darden Procedure Type of Study TTE procedure:2DECHO W DOPPLER(CW/PW/COLOR) (STAT) Indications:Suspected hypertensive heart disease. Clinical History DM, HTN, HLD HGB 12.6 HCT 39.0 % Height: 65 inches Weight: 109.32 kg (241 lbs) BSA: 2.14 m^2 BMI: 40.1 kg/m^2 HR: 77 bpm BP: 141/71 mmHg Summary Normal left ventricular chamber size. Normal wall thickness. Normal overall left ventricular systolic function. No apparent segmental wall motion abnormalities. Estimated LVEF by qualitative assessment is normal (>60%) . Normal right ventricle structure and function. Unable to estimate peak systolic PA pressure; inadequate TR velocity signal. No evidence of pericardial effusion. Signature Findings Left Ventricle Normal left ventricular chamber size. Normal wall thickness. Normal overall left ventricular systolic function. No apparent segmental wall motion abnormalities. Estimated LVEF by qualitative assessment is normal (>60%) . Left AtriumLA size is normal . Right VentricleNormal right ventricle structure and function. Right Atrium Normal right atrium. Aortic Valve Normal AoV structure and function. Mitral Valve Normal MV structure and function. Tricuspid ValveNormal TV structure and function. A trace of tricuspid regurgitation. Unable to estimate peak systolic PA pressure; inadequate TR velocity signal. Pulmonic Valve Normal PV structure and function by limited views and Doppler. AortaAortic root size (SInus of Valsalva diameter) is normal . PericardiumNo evidence of pericardial effusion. IVC/SVC/PA/PV/PleuralThe estimated RA pressure by IVC dynamics 5-10mmHg . Chambers/Structures Left Atrium LA Dimension: 3.32 cmLA Area: 18.86 cm^2 LA Volume: 51.67 ml LA Vol. Index: 24 ml/m^2 Left Ventricle LVIDd: 3.77 cm LV Septum Diastolic: 1.03 cm LV PW Diastolic: 0.85 cm LVOT Diameter: 2.21 cm Aorta Ao Root S of Didi.: 3.56 cm Doppler/Quantitative Measurements Mitral Valve MV Peak E-Wave: 0.84 m/sMV Peak A-Wave: 0.64 m/s E/A Ratio: 1.3 Peak Gradient: 2.79 mmHg Deceleration Time: 237.9 msec MV Jerry. Peak: Tissue Doppler E' Lateral Velocity: 0.12 m/s A' Lateral Velocity: 0.1 m/s E/E': 6.69 Aortic Valve Peak Velocity: 1.49 m/sMean Velocity: 1.05 m/s Peak Gradient: 8.83 mmHg Mean Gradient: 4.92 mmHg AV Area (continuity): 2.86 cm^2 AV VTI: 31.67 cm AV DVI: 0.75 LVOT Peak Velocity: 1.28 m/s Peak Gradient: 6.57 mmHg Mean Velocity: 0.83 m/s Mean Gradient: 3.35 mmHg LVOT Diameter: 2.21 cmLVOT VTI: 23.64 cm LVOT Area: 3.84 cm^2LVOT SV:90.64 ml LVOT CO: 6.98 l/min LVOT CI: 3.26 l/min/m^2 Procedure Note Interface, External Ris In - 01/14/2018 12:44 PM CDT Transthoracic Echocardiography Report (TTE) Demographics Patient Name TAINA HOUSTON Date of Study 01/14/2018 SHELLI Gender Female Visit Number [id number] Race Unknown Room Number 2047 Number Date of 1970 Referring Physician Josh Bae Age 47 year(s) Information Clerk Brokerage Gertrude Rothman [facility] Religion Professor Yfn Kee Interpreting Physician BART Manzano Procedure Type of Study TTE procedure:2DECHO W DOPPLER(CW/PW/COLOR) (STAT) Indications:Suspected hypertensive heart disease. Clinical History DM, HTN, HLD HGB 12.6 HCT 39.0 % Height: 65 inches Weight: 109.32 kg (241 lbs) BSA: 2.14 m^2 BMI: 40.1 kg/m^2 HR: 77 bpm BP: 141/71 mmHg Summary Normal left ventricular chamber size. Normal wall thickness. Normal overall left ventricular systolic function. No apparent segmental wall motion abnormalities. Estimated LVEF by qualitative assessment is normal (>60%) . Normal right ventricle structure and function. Unable to estimate peak systolic PA pressure; inadequate TR velocity signal. No evidence of pericardial effusion. Signature Findings Left Ventricle Normal left ventricular chamber size. Normal wall thickness. Normal overall left ventricular systolic function. No apparent segmental wall motion abnormalities. Estimated LVEF by qualitative assessment is normal (>60%) . Left Atrium LA size is normal . Right Ventricle Normal right ventricle structure and function. Right Atrium Normal right atrium. Aortic Valve Normal AoV structure and function. Mitral Valve Normal MV structure and function. Tricuspid Valve Normal TV structure and function. A trace of tricuspid regurgitation. Unable to estimate peak systolic PA pressure; inadequate TR velocity signal. Pulmonic Valve Normal PV structure and function by limited views and Doppler. Aorta Aortic root size (SInus of Valsalva diameter) is normal . Pericardium No evidence of pericardial effusion. IVC/SVC/PA/PV/Pleural The estimated RA pressure by IVC dynamics 5-10mmHg . Chambers/Structures Left Atrium LA Dimension: 3.32 cm LA Area: 18.86 cm^2 LA Volume: 51.67 ml LA Vol. Index: 24 ml/m^2 Left Ventricle LVIDd: 3.77 cm LV Septum Diastolic: 1.03 cm LV PW Diastolic: 0.85 cm LVOT Diameter: 2.21 cm Aorta Ao Root S of Didi.: 3.56 cm Doppler/Quantitative Measurements Mitral Valve MV Peak E-Wave: 0.84 m/s MV Peak A-Wave: 0.64 m/s E/A Ratio: 1.3 Peak Gradient: 2.79 mmHg Deceleration Time: 237.9 msec MV Jerry. Peak: Tissue Doppler E' Lateral Velocity: 0.12 m/s A' Lateral Velocity: 0.1 m/s E/E': 6.69 Aortic Valve Peak Velocity: 1.49 m/s Mean Velocity: 1.05 m/s Peak Gradient: 8.83 mmHg Mean Gradient: 4.92 mmHg AV Area (continuity): 2.86 cm^2 AV VTI: 31.67 cm AV DVI: 0.75 LVOT Peak Velocity: 1.28 m/s Peak Gradient: 6.57 mmHg Mean Velocity: 0.83 m/s Mean Gradient: 3.35 mmHg LVOT Diameter: 2.21 cm LVOT VTI: 23.64 cm LVOT Area: 3.84 cm^2 LVOT SV:90.64 ml LVOT CO: 6.98 l/min LVOT CI: 3.26 l/min/m^2 Performing Organization Address City/State/Zipcode Phone Number [facility] * CBC with platelet count + automated diff (01/13/2018 3:29 AM CDT) Only the most recent of 4 results within the time period is included. WBC 8.4 3.5 - 10.5 K/L [facility] RBC 4.25 3.93 - 5.22 M/L [facility] Hemoglobin 12.6 11.2 - 15.7 GM/DL [facility] Hematocrit 39.0 34.1 - 44.9 % [facility] MCV 91.8 79.4 - 94.8 fL [facility] MCH 29.6 25.6 - 32.2 pg [facility] MCHC 32.3 32.2 - 35.5 GM/DL [facility] RDW 12.0 11.7 - 14.4 % [facility] Platelets 296 150 - 450 K/CU MM [facility] MPV 9.5 9.4 - 12.3 fL [facility] nRBC 0 0 - 0 /100 WBC [facility] % Neutros 48 % [facility] % Lymphs 42 % [facility] % Monos 7 % [facility] % Eos 3 % [facility] % Baso 1 % [facility] # Neutros 4.00 1.56 - 6.13 K/L [facility] # Lymphs 3.53 1.18 - 3.74 K/L [facility] # Monos 0.56 (H) 0.24 - 0.36 K/L [facility] # Eos 0.24 0.04 - 0.36 K/L [facility] # Baso 0.04 0.01 - 0.08 K/L [facility] Immature 0 0 - 1 % [facility] Granulocytes-Relative [facility] Specimen Blood Performing Organization Address City/State/Zipcode Phone Number [facility] [address] [place] [address] MEDICAL CENTER * TRANSFUSION SERVICE REPORT - SCAN (01/12/2018 5:50 PM CDT) Narrative Performed At * CT chest with IV contrast (01/12/2018 10:55 AM CDT) Narrative Performed At FINAL REPORT [facility] HISTORY: evaluation for lung mets COMPARISON : None Technique : Multiple axial images of the chest were performed from the lung apices to the lung bases with the administration of IV contrast. Images were presented in both the lung and soft tissue windows. This exam was performed according to our departmental dose optimization program which includes automated exposure control, adjustment of the mA and/or kV according to patient size and/or use of iterative reconstructive technique. Comment: The thyroid gland is within normal limits. There is no hilar, mediastinal or axillary lymphadenopathy. The visualized portions of the liver, spleen, adrenal glands, pancreas are within normal limits. Arising from the partially visualized right kidney, there is a partially visualized mass measuring up to 7.8 x 8.3 cm. Findings are most concerning for a renal cell carcinoma/neoplasm. Multilevel degenerative disc changes of the thoracic spine are seen. The lungs are clear. There is no pleural effusion, pneumothorax or infiltrate. Impression: No CT evidence of thoracic metastatic disease. Signed: Yarely Flores MD Report Verified Date/Time:01/12/2018 11:29:17 Reading Location: [address] Transitional Reading Room Procedure Note Interface, External Ris In - 01/12/2018 11:31 AM CDT FINAL REPORT HISTORY: evaluation for lung mets COMPARISON : None Technique : Multiple axial images of the chest were performed from the lung apices to the lung bases with the administration of IV contrast. Images were presented in both the lung and soft tissue windows. This exam was performed according to our departmental dose optimization program which includes automated exposure control, adjustment of the mA and/or kV according to patient size and/or use of iterative reconstructive technique. Comment: The thyroid gland is within normal limits. There is no hilar, mediastinal or axillary lymphadenopathy. The visualized portions of the liver, spleen, adrenal glands, pancreas are within normal limits. Arising from the partially visualized right kidney, there is a partially visualized mass measuring up to 7.8 x 8.3 cm. Findings are most concerning for a renal cell carcinoma/neoplasm. Multilevel degenerative disc changes of the thoracic spine are seen. The lungs are clear. There is no pleural effusion, pneumothorax or infiltrate. Impression: No CT evidence of thoracic metastatic disease. Signed: Yarely Flores MD Report Verified Date/Time: 01/12/2018 11:29:17 Reading Location: [address] Transitional Reading Room Performing Organization Address City/[place] Phone Number GE RIS * XR chest 2 views (01/12/2018 8:07 AM CDT) Narrative Performed At FINAL REPORT [facility] HISTORY : surgery pre-op. Comparison: None Comment: Two views of the chest, PA and lateral, were obtained. The cardiac silhouette is within normal limits. No pneumothorax or pleural effusion is seen. No lytic or blastic abnormalities. In a left retrocardiac location, there is a nodular focus measuring up to 2.7 x 2.1 cm. While this may represent some lung parenchymal airspace disease, a mass cannot be excluded. Correlation with a chest CT is advised. Signed: Yarely Flores MD Report Verified Date/Time:01/12/2018 08:10:44 Reading Location: [address] Transitional Reading Room Procedure Note Interface, External Ris In - 01/12/2018 8:25 AM CDT FINAL REPORT HISTORY : surgery pre-op. Comparison: None Comment: Two views of the chest, PA and lateral, were obtained. The cardiac silhouette is within normal limits. No pneumothorax or pleural effusion is seen. No lytic or blastic abnormalities. In a left retrocardiac location, there is a nodular focus measuring up to 2.7 x 2.1 cm. While this may represent some lung parenchymal airspace disease, a mass cannot be excluded. Correlation with a chest CT is advised. Signed: Yarely Flores MD Report Verified Date/Time: 01/12/2018 08:10:44 Reading Location: [address] Transitional Reading Room Performing Organization Address [facility]/Zipcode Phone Number GE RIS * ECG 12 lead (01/12/2018 6:27 AM CDT) Only the most recent of 2 results within the time period is included. Narrative Performed At Ventricular Rate 76 BPM GE M[facility] Atrial Rate 76 BPM P-R Interval 152 ms QRS Duration 86 ms Q-T Interval 390 ms QTC Calculation(Bazett) 438 ms P [place] 28 degrees R [place] 31 degrees T [place] 34 degrees Normal sinus rhythm Normal ECG When compared with ECG of 11-JAN-2018 18:09, No significant change was found Confirmed by MD RUSSELL YOCHAI ([id number]) on 01/14/2018 6:33:29 AM Procedure Note Interface, External Ris In - 01/14/2018 6:33 AM CDT Ventricular Rate 76 BPM Atrial Rate 76 BPM P-R Interval 152 ms QRS Duration 86 ms Q-T Interval 390 ms QTC Calculation(Bazett) 438 ms P [place] 28 degrees R [place] 31 degrees T [place] 34 degrees Normal sinus rhythm Normal ECG When compared with ECG of 11-JAN-2018 18:09, No significant change was found Confirmed by MD RUSSELL YOCHAI ([id number]) on 01/14/2018 6:33:29 AM Performing Organization Address City/[facility] Phone Number GE M[facility] * TSH/Free T4 If Indicated (01/12/2018 5:43 AM CDT) TSH 3.96 0.35 - 4.94 uIU/mL [facility] Specimen Blood - Arm, Right Performing Organization Address [facility]/Zipcode Phone Number [address] [address] [facility]ENTER * Prothrombin time/INR (01/12/2018 5:43 AM CDT) Only the most recent of 2 results within the time period is included. Protime 14.0 11.7 - 14.7 seconds [facility] INR 1.1 <=5.9 [facility] Specimen Blood - Arm, Right Narrative Performed At RECOMMENDED COUMADIN/WARFARIN INR THERAPY RANGES [facility] STANDARD DOSE: 2.0 - 3.0 Includes: PROPHYLAXIS for venous thrombosis, [facility] systemic embolization; TREATMENT for venous thrombosis and/or pulmonary embolus. HIGH RISK: Target INR is 2.5-3.5 for patients with mechanical heart valves. Performing Organization Address City/[facility] Phone Number [address] [address] [facility] * Hemoglobin A1c (01/12/2018 5:43 AM CDT) Hemoglobin A1C 5.7 4.3 - 6.1 % [facility] Specimen Blood - Arm, Right Performing Organization Address [facility] Phone Number [address] [address] [facility] * Hepatic function panel (01/12/2018 5:43 AM CDT) Protein, Total 6.2 6.0 - 8.3 gm/dL [facility] Albumin 3.8 3.5 - 5.0 g/dL [facility] Total Bilirubin 0.5 0.2 - 1.2 mg/dL [facility] Bilirubin, Direct 0.3 0.1 - 0.5 mg/dL [facility] Alkaline Phosphatase 53 40 - 150 U/L [facility] AST 14 5 - 34 U/L [facility] ALT 13 6 - 55 U/L [facility] Specimen Blood - Arm, Right Performing Organization Address [facility] Phone Number [facility] [address] [place] [address] [phone] [place] [address] * Lipid panel (01/12/2018 5:43 AM CDT) Triglycerides 139 mg/dL [facility] Cholesterol 137 mg/dL [facility] HDL 28 mg/dL [facility] LDL Calculated 81 mg/dL [facility] Specimen Blood - Arm, Right Narrative Performed At Triglyceride Reference Range: [facility] Low Risk <150 [facility] [id number] High Risk 200-499 Very High Risk>=500 Cholesterol Reference Range: Low Risk <200 [id number] High Risk>240 HDL Cholesterol Reference Range: Low Risk >=60 High Risk <40 LDL Cholesterol Reference Range: Optimal<100 Near [id number] Grxsrptftk452-466 Mlps278-320 Very High >=190 Performing Organization Address [facility] Facility[facility] Phone Number [address] * Prepare Leuko-Red RBC (01/11/2018 7:06 PM CDT) CROSSMATCH COMPATIBLE SAFETRACE TX Unit ABO A Pos SAFETRACE TX UNIT NUMBER [id number] SAFETRACE TX Status READY SAFETRACE TX Blood Bank Product RED BLOOD CELLS SAFETRACE TX PRODUCT CODE [id number] SAFETRACE TX CROSSMATCH COMPATIBLE SAFETRACE TX Unit ABO A Pos SAFETRACE TX UNIT NUMBER [id number] SAFETRACE TX Status READY SAFETRACE TX Blood Bank Product RED BLOOD CELLS SAFETRACE TX PRODUCT CODE [id number] SAFETRACE TX Specimen Other Performing Organization Address [facility] Phone Number SAFETRACE [place] * Urine culture (01/11/2018 6:05 PM CDT) Result No growth [facility] Specimen Urine - Urine, Clean Catch Performing Organization Address [facility] Phone Number [address] * Type and screen, automated (01/11/2018 5:51 PM CDT) ABO/RH AUTOMATED (BEAKER) [facility] Ab Scrn [facility] Specimen Blood Performing Organization Address [facility] Facility[facility] Phone Number [address] * aPTT (01/11/2018 5:51 PM CDT) PTT 27.8 22.5 - 36.0 seconds [facility] Specimen Blood Performing Organization Address City/State/Zipcode Phone Number [facility] [address] [place] [address] [facility] * MR abdomen without & with IV contrast (01/11/2018 12:21 AM CDT) Narrative Performed At FINAL REPORT [facility] MRI of the abdomen with and without contrast Clinical History: Neoplasm: renal/ureteral, staging right renal mass- venogram please Technique: Multiplanar and multisequence MR images of the abdomen are obtained before and after intravenous contrast administration. Contrast is administered to evaluate neoplasm and vasculature. Comparison: No priors Discussion: Liver is mildly fatty. There is no biliary ductal dilatation, and the gallbladder is unremarkable. No liver mass is identified. Hepatic vasculature is patent. The spleen, pancreas, and adrenal glands are also unremarkable. There is a large mass within the right kidney, measuring 9.3 x 10 x 12.5 cm. Central nonenhancing areas likely reflecting necrosis. No evidence of right renal vein tumoral invasion. The mass abuts the inferior aspect of the right hepatic lobe, but there is no evidence of invasion, and a tiny fat-containing appears preserved. No enlarged retroperitoneal lymph nodes identified. Left kidney is unremarkable. No evidence of hydronephrosis. No evidence of bowel obstruction. No ascites. Slightly increased number of mesenteric, and bryan hepatis lymph nodes are seen, but nonenlarged by size criteria. No suspicious bony lesion is identified. IMPRESSION: Large right renal mass as described. No evidence of renal vein invasion. No retroperitoneal lymphadenopathy. Slightly increased number of nonenlarged mesenteric and bryan hepatis lymph nodes, a nonspecific finding. Mildly fatty liver. Impression: Signed: Javed Allan MD Report Verified Date/Time:01/11/2018 09:02:11 Reading Location: [facility] C0X [facility] Consult Reading Room Procedure Note Interface, External Ris In - 01/11/2018 9:04 AM CDT FINAL REPORT MRI of the abdomen with and without contrast Clinical History: Neoplasm: renal/ureteral, staging right renal mass- venogram please Technique: Multiplanar and multisequence MR images of the abdomen are obtained before and after intravenous contrast administration. Contrast is administered to evaluate neoplasm and vasculature. Comparison: No priors Discussion: Liver is mildly fatty. There is no biliary ductal dilatation, and the gallbladder is unremarkable. No liver mass is identified. Hepatic vasculature is patent. The spleen, pancreas, and adrenal glands are also unremarkable. There is a large mass within the right kidney, measuring 9.3 x 10 x 12.5 cm. Central nonenhancing areas likely reflecting necrosis. No evidence of right renal vein tumoral invasion. The mass abuts the inferior aspect of the right hepatic lobe, but there is no evidence of invasion, and a tiny fat-containing appears preserved. No enlarged retroperitoneal lymph nodes identified. Left kidney is unremarkable. No evidence of hydronephrosis. No evidence of bowel obstruction. No ascites. Slightly increased number of mesenteric, and bryan hepatis lymph nodes are seen, but nonenlarged by size criteria. No suspicious bony lesion is identified. IMPRESSION: Large right renal mass as described. No evidence of renal vein invasion. No retroperitoneal lymphadenopathy. Slightly increased number of nonenlarged mesenteric and bryan hepatis lymph nodes, a nonspecific finding. Mildly fatty liver. Impression: Signed: Javed Allan MD Report Verified Date/Time: 01/11/2018 09:02:11 Reading [facility] B1 [id number] Ortho Consult Reading Room Performing Organization Address City/State/Zipcode Phone Number GE RIS * Urinalysis w/ Microscopic (01/10/2018 10:20 PM CDT) Color, UA Dark Yellow [facility] Clarity, UA Hazy [facility] Specific [place], UA 1.018 1.001 - 1.035 [facility] pH, UA 5.5 5.0 - 8.0 [facility] Protein, UA 10 mg/dL (A) Negative [facility] Glucose, UA >1000 mg/dL (A) Negative [facility] Ketones, UA Negative Negative [facility] Bilirubin, UA Negative Negative [facility] Blood, UA Small (A) Negative [facility] Nitrite, UA Negative Negative [facility] Leukocytes, UA Moderate (A) Negative [facility] Urobilinogen, UA 0.2 0.2 - 1.0 mg/dL [facility] RBC, UA 5 /HPF [facility] WBC, UA 18 /HPF [facility] Bacteria, UA Moderate [facility] Mucus Rare [facility] Squam Epithel, UA 5 /HPF [facility] Specimen Source Urine, Clean Catch [facility] Specimen Urine - Urine, Clean Catch Performing Organization Address City/State/Zipcode Phone Number [facility] [address] [place], [place] [phone] [facility] after 08/10/2017 Insurance Payer Benefit Subscriber ID Type Phone Address Plan / Group [employer]UE [employer] BCBS PPO xxxxxxxxxxxx PPO [phone] [address] [place] [address] CHOICE Advance Directives For more information, please contact: [facility] [address] [place] [address] [phone] Date Inactivated Comments Code Status Date Activated 01/17/2018 2:20 PM Full Code 01/10/2018 9:40 PM This code status was determined by: Patient
[2018-08-11] MEDS ORDERED: ORPHENADRINE CITRATE 30 MG/ML VIAL IM ONE (09:15)
--- NOTE | 2018-08-11 09:50 | NUR ---
MEDICATED FOR PAIN ORDERED. PT TO RADIOLOGY.
[2018-08-11] MEDS ORDERED: HYDROCODONE/APAP 7.5MG-325MG 1 EA TAB PO ONE (10:00)
--- NOTE | 2018-08-11 10:23 | Diagnostic Imaging Report ---
Thoracic spine complete CPT code: 49035 Indication: Midthoracic back pain for one week Technique: A.P. swimmer's, and lateral views of thoracic spine obtained without comparison. Findings: Alignment maintained on AP view. No compression or subluxation. Alignment is maintained on lateral view. Anterior superior corner height loss of a lower thoracic vertebral body, possibly T10, with associated osteophytic lipping. The vertebral body itself is not compressed. Other vertebral bodies are symmetric in morphology. There is diffuse endplate osteophytic lipping. Cervicothoracic junction is normal in alignment. IMPRESSION: Anterior superior corner compression of a lower thoracic vertebral body, possibly T10, of indeterminate age. The vertebral body itself is not compressed. Diffuse endplate degenerative changes of the spine. Signed by: Dr. Hyun Fitzgerald MD on 08/11/2018 10:19 AM
[2018-08-11 11:35] VITALS: BP 111/73
== END 2018-08-11 11:50 | disposition home or self-care (01) ==
LOC: ER 08:39
DX: M54.6 Pain in thoracic spine (principal); S22.071A Stable burst fracture of T9-T10 vertebra, initial encounter for closed fracture; S23.3XXA Sprain of ligaments of thoracic spine, initial encounter; I10 Essential (primary) hypertension; E11.9 Type 2 diabetes mellitus without complications; Z85.53 Personal history of malignant neoplasm of renal pelvis
CPT/HCPCS: 72072; 99283; J2360